=== PATIENT | male | born 1990 | race Caucasian/White ===

== ENCOUNTER 2025-04-07 21:14 | Emergency (ER) | payer BC, SELFPAY ==
[2025-04-07] MEDS ORDERED: NA CHLORIDE 0.9% 2,000 ML ONE (21:43)
[2025-04-07 21:52] LABS: Absolute Lymphocytes (CBC) 2.9 K/uL (0.7-4.9); Hematocrit 46.2 % (39.6-49.0); Hemoglobin 16.2 g/dL (13.6-17.9); MCH 30.3 pg (27.0-35.0); MCHC 35.0 g/dL (32.0-36.0); MCV 86.6 fL (80-100); MPV 8.9 fL (7.6-11.3); Nucleated RBC Absolute Count 0.0 (0-0); Nucleated Red Blood Cells % 0.1 % (0-0); RBC Red Blood Cell Count 5.34 M/uL (4.33-5.43); White Blood Count 8.30 thou/uL (4.3-10.9)
[2025-04-07 22:12] LABS: ALT/SGPT 72 U/L (16-61); Albumin 3.9 g/dL (3.4-5.0); Albumin/Globulin Ratio 1.1 (1.1-1.8); Alkaline Phosphatase 69 U/L (45-117); Anion Gap 9.8 mEq/L (5.0-15.0); BUN Blood Urea Nitrogen 22 mg/dL (7-18); Globulin 3.5 g/dL (2.3-3.5); Glucose Level 117 mg/dL (74-106); NT PRO-BNP 18 pg/mL (<125); Troponin High Sensitivity 7.1 pg/mL (<58.9)
[2025-04-07 22:17] LABS: AST/SGOT 34 U/L (15-37); Bilirubin Indirect, Calculated 0.3 mg/dL (0.2-0.8); Magnesium 2.1 mg/dL (1.6-2.4); Potassium 3.8 mEq/L (3.5-5.1)
[2025-04-07] MEDS ORDERED: NA CHLORIDE 0.9% 250 ML ONE ×2 (22:46→23:37)
[2025-04-07] MEDS ORDERED: CROTALIDAE ANTIVENIM 1 GM VIAL IV ONE ×2 (22:46→23:37)
--- NOTE | 2025-04-07 22:51 | ER ---
Nurse's Notes [facility] Name: Duncan Milian Age: 34 yrs Sex: Male : 1990 Arrival Date: 04/07/2025 Time: 21:14 Bed 2 Private MD: Diagnosis: Toxic effect of snake venom;Acute right foot with a rattlesnake envenomation Presentation: 04/07 21:15 Chief complaint: Patient states: "rattle snake bit me while i was trying to move my zm truck at about 2000". Coronavirus screen: Vaccine status: Patient reports being unvaccinated. Client denies travel out of the [place] in the last 14 days. At this time, the client does not indicate any symptoms associated with coronavirus-19. Ebola Screen: Patient denies travel to an Ebola-affected area in the 21 days before illness onset. No symptoms or risks identified at this time. Initial Sepsis Screen: Does the patient meet any 2 criteria? No. Patient's initial sepsis screen is negative. Does the patient have a suspected source of infection? No. Patient's initial sepsis screen is negative. Risk Assessment: Do you want to hurt yourself or someone else? Patient reports no desire to harm self or others. Onset of symptoms was April 07, 2025 at 20:00. 21:15 Method Of Arrival: EMS: [facility] 21:15 Acuity: DAVE 3 Triage Assessment: 21:18 General: Appears in no apparent distress. comfortable, Behavior is calm, cooperative. Pain: Complains of pain in medial aspect of right foot Pain radiates to right leg Pain currently is 2 out of 10 on a pain scale. Quality of pain is described as aching, Pain began 1 hour ago. Neuro: No deficits noted. Level of Consciousness is awake, alert, obeys commands, Oriented to person, place, time, situation. Cardiovascular: No deficits noted. Denies chest pain, Heart tones S1 S2 present Capillary refill < 3 seconds in bilateral fingers toes Patient's skin is warm and dry. Respiratory: Airway is patent Respiratory effort is even, unlabored, Respiratory pattern is regular, symmetrical, Breath sounds are clear bilaterally. in right upper lobe, left upper lobe, left lower lobe and right lower lobe. GI: No deficits noted. GI: No deficits noted. Abdomen is round non-distended, Bowel sounds present X 4 quads. Abd is soft and non tender X 4 quads. Derm:. Derm: Wound noted medial aspect of right foot Wound is puncture wound redness and swelling around puncture wound. Musculoskeletal: No deficits noted. Circulation, motion, and sensation intact. Capillary refill < 3 seconds, in bilateral fingers. toes. Injury Description: Bite sustained to medial aspect of right foot caused by a snake, is superficial, minimal invenomation was sustained 1-2 hours ago. Historical: - Allergies: 21:18 No Known Allergies; zm - PMHx: 21:18 None; zm - PSHx: 21:18 bicep repair; zm - Immunization history:: Adult Immunizations unknown. - Infectious Disease History:: Denies. - Social history:: Smoking status: Patient denies any tobacco usage or history of. Patient uses alcohol, occasionally. Patient/guardian denies using street drugs. - Family history:: not pertinent. Screenin:[facility] ED Fall Risk Assessment (Adult) History of falling in the last 3 months, zm including since admission No falls in past 3 months (0 pts) Confusion or Disorientation No (0 pts) Intoxicated or Sedated No (0 pts) Impaired Gait No (0 pts) Mobility Assist Device Used No (0 pt) Altered Elimination No (0 pt) Score/Fall Risk Level 0 - 2 = Low Risk Oriented to surroundings, Maintained a safe environment, Educated pt \\T\\ family on fall prevention, incl call for assistance when getting out of bed, Assessed \\T\\ reinforced patient's understanding of fall precautions, Hourly rounding (assess needs \\T\\ fall precautionary measures) done, Used ambulatory aids as needed (educated on \\T\\ assisted with), Used gait belt as appropriate. Abuse screen: Denies threats or abuse. Denies injuries from another. Nutritional screening: No deficits noted. Tuberculosis screening: No symptoms or risk factors identified. Assessment: 21:18 Reassessment: see triage assessment. zm 22:31 Reassessment: Patient appears in no apparent distress at this time. No changes from zm previously documented assessment. Patient and/or family updated on plan of care and expected duration. Pain level reassessed. Patient is alert, oriented x 3, equal unlabored respirations, skin warm/dry/pink. Patient denies pain at this time. 23:05 Reassessment: Patient appears in no apparent distress at this time. No changes from bm8 previously documented assessment. Patient and/or family updated on plan of care and expected duration. Pain level reassessed. Patient is alert, oriented x 3, equal unlabored respirations, skin warm/dry/pink. report given to Bhanu Alcala \\T\\[facility]. 23:40 Reassessment: Patient appears in no apparent distress at this time. Patient and/or zm family updated on plan of care and expected duration. Pain level reassessed. Patient denies pain at this time. Derm: Skin is red. 23:40 General: Appears in no apparent distress. comfortable, Behavior is calm, cooperative. zm Neuro: Level of Consciousness is awake, alert, obeys commands, Oriented to person, place, time, situation. Cardiovascular: Capillary refill < 3 seconds in bilateral fingers toes. Respiratory: Airway is patent Respiratory effort is even, unlabored, Respiratory pattern is regular, symmetrical. 23:49 Reassessment: Patient appears in no apparent distress at this time. No changes from zm previously documented assessment. Patient and/or family updated on plan of care and expected duration. Pain level reassessed. Derm: Skin is clammy, Skin is pale, Skin temperature is cool. 23:49 General: Appears in no apparent distress. comfortable, Behavior is calm, cooperative. zm Neuro: Neuro: Level of Consciousness is awake, alert, obeys commands, Oriented to person, place, time, situation. Cardiovascular: Cardiovascular: Capillary refill < 3 seconds in bilateral fingers. Respiratory: Airway is patent Respiratory effort is even, unlabored, Respiratory pattern is regular, symmetrical. Vital Signs: 21:15 BP 151 / 109; Pulse 121; Resp 20; Temp 98.3; Pulse Ox 97% on R/A; Weight 127.01 kg; zm Height 6 ft. 1 in. ; Pain 2/10; 22:32 BP 147 / 112; Pulse 95; Resp 20; Pulse Ox 100% ; zm 23:05 BP 162 / 100; Pulse 95; Resp 17; Temp 98.3; Pulse Ox 100% ; Pain 1/10; bm8 21:15 Body Mass Index 36.94 (127.01 kg, 185.42 cm) zm 21:15 Pain Scale: Adult zm 23:05 Pain Scale: Adult bm8 [place] Coma Score: 22:32 Eye Response: spontaneous(4). Motor Response: obeys commands(6). Verbal Response: zm oriented(5). Total: 15. 23:05 Eye Response: spontaneous(4). Motor Response: obeys commands(6). Verbal Response: bm8 oriented(5). Total: 15. 23:09 Eye Response: spontaneous(4). Motor Response: obeys commands(6). Verbal Response: sp4 oriented(5). Total: 15. ED Course: 21:15 Patient arrived in ED. zm 21:16 Michael Mendes MD is Attending Physician. sp4 21:17 Triage completed. zm 21:18 Arm band placed on right wrist. zm 21:28 Mamta Archer, RN is Primary Nurse. zm 21:38 Patient has correct armband on for positive identification. Call light in reach. Side zm rails up X2. Provided Education on: call light use. Client placed on continuous cardiac and pulse oximetry monitoring. NIBP monitoring applied. quality assurance monitor chassis on. Pulse ox on. NIBP on. Door closed. Noise minimized. Warm blanket given. Verbal reassurance given. 21:38 Initial lab(s) drawn, by me, sent to lab. Inserted saline lock: 20 gauge in left wrist, zm using aseptic technique. Blood collected. Flushed with 10 mL NS. 21:42 Ptt, Activated Sent. zm 21:42 Fibrinogen Sent. zm 21:42 Basic Metabolic Panel Sent. zm 21:42 CBC with Diff Sent. zm 21:42 LFT's Sent. zm 21:42 Magnesium Sent. zm 21:42 PT-INR Sent. zm 21:42 Troponin HS Sent. zm 23:05 No provider procedures requiring assistance completed. bm8 23:05 Patient admitted, IV remains in place. bm8 Administered Medications: 21:48 Drug: NS 0.9% IV 1000 ml IV at 125 ml/hr once; to be given at 125 ml / hour Route: IV; bm8 Rate: 1000 ml/hr; Site: left antecubital; 23:07 Follow up: Response: No adverse reaction; IV Status: Completed infusion bm8 21:48 Drug: NS 0.9% IV 1000 ml IV at 125 ml/hr once; to be given at 125 ml / hour Route: IV; bm8 Rate: 125 ml/hr; Site: left antecubital; 23:47 Follow up: Response: No adverse reaction; IV Status: Infusion continued upon transfer bm8 22:58 Drug: CroFab IV 4 vials IV at calculated rate once; may repeat at >=1 hour intervals bm8 until initial control of symptoms {Note: 1st vial and then 3 vials.} Route: IV; Rate: calculated rate; Site: left wrist; 23:47 Follow up: Response: No adverse reaction; IV Status: Infusion continued upon admission bm8 23:47 Drug: diphenhydrAMINE IVP 25 mg IVP once Route: IVP; Site: left wrist; bm8 23:47 Follow up: Response: No adverse reaction bm8 Medication: 22:05 VIS not applicable for this client. Outcome: 22:50 ER care complete, transfer ordered by . camelia 23:48 Transferred by ground EMS to [facility], Transfer form bm8 completed. X-rays sent w/ patient. 23:48 Condition: stable 23:48 Instructed on follow up and referral plans. the need for transfer, Demonstrated understanding of instructions, follow-up care, medications, 23:49 Patient left the ED. bm8 Signatures: Mamta Archer, RN RN Michael Mendes MD MD Rg Medellin RN RN bm8 Corrections: (The following items were deleted from the chart) 23:47 22:58 CroFab IV 4 vials IV at calculated rate in left wrist; 1st vial bm8 bm8 23:54 23:51 General: Appears in no apparent distress. comfortable, Behavior is calm, zm cooperative, 23:54 23:51 Respiratory: Airway is patent Respiratory effort is even, unlabored, Respiratory zm pattern is regular, symmetrical, 23:54 23:51 Cardiovascular: Capillary refill < 3 seconds in bilateral fingers Cardiovascular: Capillary refill < 3 seconds in bilateral fingers 23:54 23:51 Neuro: Level of Consciousness is awake, alert, obeys commands, Oriented to zm person, place, time, situation, Neuro: Level of Consciousness is awake, alert, obeys commands, Oriented to person, place, time, situation, zm
--- NOTE | 2025-04-07 22:51 | EDPHYS ---
Physician Documentation [facility] Name: Duncan Milian Age: 34 yrs Sex: Male : 1990 Arrival Date: 04/07/2025 Time: 21:14 Bed 2 Private MD: ED Physician Michael Mendes HPI: 04/07 21:17 This 34 yrs old Male presents to ER via Unassigned with complaints of R foot sp4 snake bite. 21:27 R foot bite. sp4 22:51 Patient presents with acute right foot bite secondary to reported rattlesnake sp4 envenomation just medial surface of the right heel. Patient reports at 8 PM he sustained snake bite and reported hearing the rattle snake slid away. The snake was not captured. Patient presents with EMS complaining 2 out of 10 pain to the right heel and foot mild swelling right medial foot and heel. Reported pain tracking up to the right groin.. Historical: - Allergies: 21:18 No Known Allergies; zm - PMHx: 21:18 None; zm - PSHx: 21:18 bicep repair; zm - Immunization history:: Adult Immunizations unknown. - Infectious Disease History:: Denies. - Social history:: Smoking status: Patient denies any tobacco usage or history of. Patient uses alcohol, occasionally. Patient/guardian denies using street drugs. - Family history:: not pertinent. ROS: 23:09 MS/extremity: Positive for Noticed a fang luis enrique with redness swelling and mild sp4 tenderness associated, surface over the right heel medial side, of the medial aspect of right foot -surface of the right heel, 23:09 Constitutional: Negative for fever, chills, and weight loss, Eyes: Negative for injury, pain, redness, and discharge, ENT: Negative for injury, pain, and discharge, Neck: Negative for injury, pain, and swelling, Cardiovascular: Negative for chest pain, palpitations, and edema, Respiratory: Negative for shortness of breath, cough, wheezing, and pleuritic chest pain, MS/Extremity: Positive for right foot right heel snakebite 23:09 All other systems are negative, Exam: 23:09 Constitutional: This is a well developed, well nourished patient who is awake, alert, sp4 and in no acute distress. Head/Face: Normocephalic, atraumatic. Eyes: Pupils equal round and reactive to light, extra-ocular motions intact. Lids and lashes normal. Conjunctiva and sclera are not injected. Cornea within normal limits. Periorbital areas with no swelling, redness, or edema. ENT: Nares patent. No nasal discharge, no septal abnormalities noted. Tympanic membranes are normal and external auditory canals are clear. Oropharynx with no redness, swelling, or masses, exudates, or evidence of obstruction, uvula midline. Mucous membranes moist. Neck: Trachea midline, no thyromegaly or masses palpated, and no cervical lymphadenopathy. Supple, full range of motion without nuchal rigidity, or vertebral point tenderness. Chest/axilla: Normal chest wall appearance and motion. Nontender with no deformity. No lesions are appreciated. Cardiovascular: Regular rate and rhythm with a normal S1 and S2. No gallops, murmurs, or rubs. No pulse deficits. Respiratory: Lungs have equal breath sounds bilaterally, clear to auscultation and percussion. No rales, rhonchi or wheezes noted. No increased work of breathing, no retractions or nasal flaring. Abdomen/GI: Soft, with normal bowel sounds. No distension or tympany. No guarding or rebound. No evidence of tenderness throughout. Back: No spinal tenderness. No costovertebral tenderness. Skin: Warm, dry with normal turgor. Normal color with no rashes, no lesions, and no evidence of cellulitis. MS/ Extremity: Pulses equal, no cyanosis. Neurovascular intact. Full, normal range of motion. Normal peripheral pulses, medial surface of the right heel indistinct and fang luis enrique with associated discoloration color over the heel otherwise pink with mild swelling progressing upwards towards the right ankle Neuro: Awake and alert, GCS 15, oriented to person, place, time, and situation. Cranial nerves II-XII grossly intact. Motor strength 5/5 in all extremities. Sensory grossly intact. Psych: Awake, alert, with orientation to person, place and time. Behavior, mood, and affect are within normal limits 23:43 ECG was reviewed by the Attending Physician. EKG at 2138 serum tachycardia rate 105 sp4 otherwise normal Vital Signs: 21:15 BP 151 / 109; Pulse 121; Resp 20; Temp 98.3; Pulse Ox 97% on R/A; Weight 127.01 kg; zm Height 6 ft. 1 in. ; Pain 2/10; 22:32 BP 147 / 112; Pulse 95; Resp 20; Pulse Ox 100% ; zm 23:05 BP 162 / 100; Pulse 95; Resp 17; Temp 98.3; Pulse Ox 100% ; Pain 1/10; bm8 21:15 Body Mass Index 36.94 (127.01 kg, 185.42 cm) zm 21:15 Pain Scale: Adult zm 23:05 Pain Scale: Adult bm8 [place] Coma Score: 22:32 Eye Response: spontaneous(4). Motor Response: obeys commands(6). Verbal Response: zm oriented(5). Total: 15. 23:05 Eye Response: spontaneous(4). Motor Response: obeys commands(6). Verbal Response: bm8 oriented(5). Total: 15. 23:09 Eye Response: spontaneous(4). Motor Response: obeys commands(6). Verbal Response: sp4 oriented(5). Total: 15. MDM: 21:35 Medical Screening Exam initiated sp4 22:45 ED course: After discussion with admitting service Patrick Arce , this is an sp4 envenomation and there is high likelihood that swelling will progress further up the leg. Strong recommendation is made for administration of antivenom. Patient is in agreement. Will initiate 4 vials of CroFab. Then we will consider transfer for further management in [facility].. 23:12 Differential diagnosis: sprain, penetrating trauma, cellulitis, Crotalid snake bite. sp4 Data reviewed: vital signs, nurses notes, EMS record, lab test result(s). Consideration of Admission/Observation Escalation of care including admission/observation considered. Management of patient was discussed with the following: Hospitalist: Patient initially discussed with [place] [facility] control. [place] [facility] advised elevated above heart level, vital signs every 15 minutes, checking coagulation panel and fibrinogen, rechecking coagulation panel in 6 hours, no NSAIDs, no steroid administration, no prophylactic antibiotics, no ice, no tourniquet application. , IV fluid administration was advised as well as pain control with Tylenol and opiates. Patient was then discussed with hospital admitting service who advised CroFab administration. The swelling has progressed somewhat now encompassing her right foot medial surface progressing towards the right ankle. Patient was ordered 4 vials of CroFab. . Yarn Weigher: Patient was discussed extensively with [facility] trauma team and transferred to be seen by trauma surgeon Dr. Gigi Angulo. Patient then transferred for further assessment via ground EMS. Patient is hemodynamically stable. . ED course: Initial coagulation panel is normal. CroFab administered in the ER initial dose of 4 vials. Patient is stable for transfer via ground EMS. Patient states pain is controlled and he declined any pain medicine.. 23:33 ED course: 2333 patient developed episode of diaphoresis reported feeling unwell. Blood sp4 pressure remained stable. Tachycardic at 112.. 04/07 21:20 Order name: Basic Metabolic Panel; Complete Time: 22:30 sp4 04/07 21:20 Order name: CBC with Diff; Complete Time: 22:04 sp4 04/07 21:20 Order name: LFT's; Complete Time: 22:30 sp4 04/07 21:20 Order name: Magnesium; Complete Time: 22:30 sp4 04/07 21:20 Order name: NT PRO-BNP; Complete Time: 22:30 sp4 04/07 21:20 Order name: PT-INR; Complete Time: 23:04 sp4 04/07 21:20 Order name: Troponin HS; Complete Time: 22:30 sp4 04/07 21:20 Order name: Ptt, Activated; Complete Time: 23:04 sp4 04/07 21:27 Order name: Fibrinogen; Complete Time: 23:04 sp4 04/07 21:20 Order name: Cardiac monitoring; Complete Time: 21:42 sp4 04/07 21:20 Order name: EKG - Nurse/Tech; Complete Time: 21:42 sp4 04/07 21:20 Order name: IV Saline Lock; Complete Time: 21:42 sp4 04/07 21:20 Order name: Labs collected and sent; Complete Time: 21: sp4 04/07 21:20 Order name: O2 Per Protocol; Complete Time: : sp4 04/07 21:20 Order name: O2 Sat Monitoring; Complete Time: : sp4 04/07 21:21 Order name: Misc. Order: No Ice, Elevate above heart level; Complete Time: : sp4 EC: Rate is 105 beats/min. Rhythm is regular, Sinus tachycardia. QRS [place] is Normal. MD sp4 interval is normal. QRS interval is normal. QT interval is normal. No Q waves. T waves are Normal. No ST changes noted. Clinical impression: Sinus tachycardia and No evidence of ischemia. Interpreted by me. Reviewed by me. Administered Medications: 21:48 Drug: NS 0.9% IV 1000 ml IV at 125 ml/hr once; to be given at 125 ml / hour Route: IV; bm8 Rate: 1000 ml/hr; Site: left antecubital; 23:07 Follow up: Response: No adverse reaction; IV Status: Completed infusion bm8 21:48 Drug: NS 0.9% IV 1000 ml IV at 125 ml/hr once; to be given at 125 ml / hour Route: IV; bm8 Rate: 125 ml/hr; Site: left antecubital; 23:47 Follow up: Response: No adverse reaction; IV Status: Infusion continued upon transfer bm8 22:58 Drug: CroFab IV 4 vials IV at calculated rate once; may repeat at >=1 hour intervals bm8 until initial control of symptoms {Note: 1st vial and then 3 vials.} Route: IV; Rate: calculated rate; Site: left wrist; 23:47 Follow up: Response: No adverse reaction; IV Status: Infusion continued upon admission bm8 23:47 Drug: diphenhydrAMINE IVP 25 mg IVP once Route: IVP; Site: left wrist; bm8 23:47 Follow up: Response: No adverse reaction bm8 Disposition Summary: 04/07/25 22:50 Transfer Ordered Notes: Transfer Location: [facility]-System sp4 Reason: Higher level of care sp4 Condition: Stable sp4 Problem: new sp4 Symptoms: have improved sp4 Accepting Physician: Soha [facility] attending(04/07/25 23:49) bm8 Diagnosis - Toxic effect of snake venom sp4 - Acute right foot with a rattlesnake envenomation sp4 Forms: - Medication Reconciliation Form sp4 - SBAR form sp4 Critical care time excluding procedures: 22:47 Critical care time: Bedside Care: 36 minutes, Consultation: 12 minutes, Family sp4 Intervention: 12 minutes. Total time: 60 minutes Signatures: Dispatcher [employer] Mamta Duncan, RN STACEY Michael Mendes MD MD sp4 Otero, Rg, RN RN bm8 Corrections: (The following items were deleted from the chart) 21:21 21:21 PTT, ACTIVATED+COAG.LAB.BIANKA ordered. EDMS EDMS 23:49 22:50 [facility] attending sp4 bm8
[2025-04-07 22:57] LABS: PT Prothrombin Time 10.8 SECONDS (10-13.0); PTT, Activated Partial Thromb 27.4 SECONDS (27.2-37.4); Protime INR 0.95
[2025-04-07] MEDS ORDERED: DIPHENHYDRAMINE 50 MG/ML VIAL ONE (23:31)
[2025-04-08 00:45] VITALS: TEMP 98.3
[2025-04-08 00:46] VITALS: O2SAT 100
[2025-04-08 00:48] VITALS: BP 162/100
== END 2025-04-07 23:49 | disposition short-term general hospital (02) ==
LOC: ER 21:14
DX: T63.011A Toxic effect of rattlesnake venom, accidental (unintentional), initial encounter (principal); S91.331A Puncture wound without foreign body, right foot, initial encounter
CPT/HCPCS: 36415; 80048; 80076; 83735; 83880; 84484; 85025; 85384; 85610; 85730; 93005; 96361; 96365; 96375; 99285; J0840; J1200; J7030; J7050